=== PATIENT | male | born 1950 | race Caucasian/White ===

== ENCOUNTER → 2018-04-08 | Outpatient (CLI) | payer OTHER ==
[~2018-04-08] MED LIST: ASPIRIN325 MG PO; CIALIS5 MG PO; FLUCONAZOLE100 MG PO; IOPAMIDOL 370 MG/ML 200 ML INFUS..BTL INJ ONE; LEVOTHYROXINE50 MCG PO; LISINOPRIL5 MG PO; LIVALO4 MG PO; METOPROLOL SUCC50 MG PO; MONTELUKAST SOD10 MG PO; MUCINEX PO; NORCO 10-325 T1 EACH PO; SODIUM CHLORIDE 0.9% 50ML 50 ML ONE; TAMSULOSIN HCL0.4 MG PO
[2018-04-08 15:17] LABS: BLOOD UREA NITROGEN 11 mg/dL (7-26); BUN/CREATININE RATIO 11 (6-25); CREATININE, SERUM 0.98 mg/dL (0.72-1.25); EST GLOMERULAR FILTRATION RATE > 60 ML/MIN (60-)
--- NOTE | 2018-04-08 16:28 | Diagnostic Imaging Report ---
EXAM: CT Abdomen and Pelvis WITH contrast INDICATION: Abdominal Pain COMPARISON: None. TECHNIQUE: Abdomen and pelvis were scanned utilizing a multidetector helical scanner from the lung base to the pubic symphysis after administration of IV contrast. Coronal and sagittal reformations were obtained. Routine protocol was performed. Scan was performed when during portal venous phase. IV CONTRAST: 100 mL of Isovue 370 ORAL CONTRAST: 900 cc of water. COMPLICATIONS: None RADIATION DOSE: Total DLP: 677.5 mGy*cm Estimated effective dose: (DLP x 0.015 x size factor) mSv CTDIvol has been reviewed. It is below the limits set by the Radiation Protocol Committee (RPC). FINDINGS: LINES and TUBES: None. LOWER THORAX: There is a 2 mm solid pulmonary nodule in the right lower lobe subpleural location on series 94, image 6. There is a 5 mm solid pulmonary nodule in the left lower lobe on image 4. Multiple 2 mm left lower lobe pulmonary nodules, for example on image 10. A 2 mm calcified granuloma in the left lower lobe on image 9. HEPATOBILIARY: No evidence of focal lesion. No biliary ductal dilation. GALLBLADDER: No radio-opaque stones or sludge. No wall thickening. SPLEEN: No splenomegaly. PANCREAS: No focal masses or ductal dilatation. ADRENALS: No adrenal nodules KIDNEYS/URETERS: Kidneys enhance symmetrically. No evidence of hydronephrosis, solid mass, or stone. GI TRACT: No evidence of wall thickening or distension. The appendix is not identified, however there are no secondary signs of appendicitis in the right lower quadrant. PELVIC ORGANS/BLADDER: The bladder is unremarkable in appearance. Prostatomegaly. LYMPH NODES: No lymphadenopathy. VESSELS: Extensive atherosclerotic vascular calcifications in the abdominal aorta and branch vessels. Retroaortic left renal vein. PERITONEUM / RETROPERITONEUM: No free air or fluid. BONES AND SOFT TISSUES: No acute bony findings. No suspicious lytic or blastic lesions. Mild degenerative disc changes at L5-S1. Small bilateral fat containing inguinal hernias. CONCLUSION: No acute findings in the abdomen or pelvis. Non-calcified lower lobe pulmonary nodules measuring up to 5 mm. In a low risk patient, these likely represent benign findings such as non-calcified granulomas and no further follow-up is suggested. If the patient has high risk such as a smoking history, then a 1 year follow-up chest CT may be considered. Signed by: Dr. Richardson Robert MD on 04/08/2018 4:25 PM
== END ==
LOC: CT 14:11
PROVIDERS: ATTEND Family Medicine
DX: R10.9 Unspecified abdominal pain (principal)
CPT/HCPCS: 36415; 74177; 82565; 84520; Q9967

== ENCOUNTER → 2018-04-10 | Outpatient (CLI) | payer BC, OTHER ==
[~2018-04-10] MED LIST changes: -IOPAMIDOL 370 MG/ML 200 ML INFUS..BTL INJ ONE; -SODIUM CHLORIDE 0.9% 50ML 50 ML ONE
--- NOTE | 2018-04-10 15:35 | Diagnostic Imaging Report ---
EXAM: BONE MINERAL DENSITY HISTORY: Bone mineralization evaluation COMPARISON: None DISCUSSION: Evaluation of the left hip and lumbar spine was performed utilizing DEXA Hologic bone densitometer. The study is technically adequate. Left hip femoral neck bone mineral density: 0.69 g/cm2, T-score is -1.7, Z-score is -0.5. Left hip total bone mineral density: 0.79 g/cm2, T-score is -1.6, Z-score is -0.9. Lumbar spine total bone mineral density: 0.99 gm/cm2, T-score is -0.9, Z-score is 0.0. 10 year fracture risk major osteoporotic fracture 9% and hip fracture 2.3%. Impression: Bone mineralization by WHO Classification is low bone mass/osteopenia, the fracture risk is increased. Signed by: Dr. Ashok Carney M.D. on 04/10/2018 3:31 PM
== END ==
LOC: DX 13:17
PROVIDERS: ATTEND Internal Medicine
DX: M81.0 Age-related osteoporosis without current pathological fracture (principal)
CPT/HCPCS: 77080

== ENCOUNTER → 2018-08-08 | Outpatient (CLI) | payer OTHER | LOC: DX 13:45 | PROVIDERS: ATTEND Internal Medicine | DX: M81.0 Age-related osteoporosis without current pathological fracture (principal) ==